=== PATIENT | male | born 1985 | race Caucasian/White ===

== ENCOUNTER 2023-01-13 11:53 | Emergency (ER) | payer MEDICAID, OTHER, SELFPAY ==
[~2023-01-13] VITALS: Ht 167.6 cm; Wt 64.5 kg
[2023-01-13] MEDS ORDERED: BUPR8SUB SL (12:04)
[2023-01-13 12:06] VITALS: BP 145/82
[2023-01-13 12:45] LABS: BARBITURATES URINE NEGATIVE (NEGATIVE); BENZODIAZEPINES URINE NEGATIVE (NEGATIVE); METHADONE URINE NEGATIVE (NEGATIVE); OPIATES URINE NEGATIVE (NEGATIVE); PHENCYCLIDINE URINE NEGATIVE (NEGATIVE)
[2023-01-13 12:46] LABS: AMPHETAMINES LEVEL URINE POSITIVE (NEGATIVE); CANNABINOIDS URINE POSITIVE (NEGATIVE); COCAINE METABOLITE URINE POSITIVE (NEGATIVE)
== END 2023-01-13 13:23 | disposition home or self-care (01) ==
LOC: M ED 11:53
DX: F19.10 Other psychoactive substance abuse, uncomplicated (principal); Z79.899 Other long term (current) drug therapy